=== PATIENT | female | born 1970 | race Caucasian/White ===

== ENCOUNTER → 2016-05-31 | Day surgery (SDC) | payer OTHER ==
[2016-05-30 15:02] VITALS: Ht 157.5 cm; Wt 88.6 kg
[~2016-05-31] VITALS: Ht 157.5 cm; Wt 88.6 kg
[~2016-05-31] MED LIST: ACET-749 PO; ACETAMINOPHEN/CODEINE 300/30MG TAB PO PRN; ATROPINE SULFATE 0.1 MG/ML 5ML SYR IV PRN; ATV/1 PO; BIOF500C2 PO; BUPIVACAINE 0.5 % 5 MG/1 ML MPF 30ML VIAL ONE; BUPR200T2 PO; CEFAZOLIN 1000MG/55 ML D5W IV SCH; CEFAZOLIN SOD 1 GM VIAL ONE; FENTANYL CITRATE INJ 50 MCG/1 ML 2 ML VIAL IV PRN; FENTANYL CITRATE INJ 50 MCG/1 ML 2 ML VIAL ONE; KETOROLAC TROMETHAMINE 30 MG/ML VIAL IV. PRN; LACTATED RINGER'S 1000ML 1,000 ML IV SCH; LIDOCAINE HCL 2% 2 ML VIAL (20MG/ML) ONE; LIDOCAINE HCL 2% LOCAL 20 ML VIAL ONE; MIDAZOLAM HCL 1 MG/ML 2ML VIAL ONE; ONDANSETRON INJ 2 MG/ML 2 ML VIAL IV PRN; PATIENT'S ALLERGY INFO NEEDS ENTERED SCH; PATIENT'S HEIGHT AND/OR WEIGHT NEEDED SCH; PROPOFOL IV EMULSION 10 MG/ML 20 ML VIAL IV ONE; SODIUM CHLORIDE 0.9% 1000ML 1,000 ML IV SCH
--- NOTE | 2016-05-31 10:18 | History & Physical Bridge - [place] ---
H&P Re-Evaluation Bridge Note: I have examined the patient, reviewed the History & Physical and in the interval since the performance of the History & Physical I have noted the following changes of clinical significance: No changes noted
--- NOTE | 2016-05-31 11:03 | [facility] Post Operative Brief Note ---
Immediate Operative Summary Operative Date May 31, 2016. Pre-Operative Diagnosis Right Carpal Tunnel Syndrome, Right Ring Finger Trigger Finger Post-Operative Diagnosis Same Procedure(s) Performed Right Carpal Tunnel Release; Right Ring Trigger Finger Release Surgeon Dr. Valdez Energy Efficient Site Manager Surgeon(s) Kishor Westbrook PA-C Estimated Blood Loss Minimal Findings Right Ring Trigger FInger + Right Carpal Tunnel Syndrome Specimens None Anesthesia Local with IV Sedation Complication(s) None Disposition Recovery Room / PACU
[2016-05-31 11:05] VITALS: TEMP 36.4
--- NOTE | 2016-05-31 11:05 | Discharge Instructions-SurgCtr ---
Discharge Instructions Visit Reason for Visit: Right Carpal Tunnel Syndrome, Right Ring Trigger F Discharge Discharge Diagnosis / Problem: right carpal tunnel syndrome, ring trigger finger Discharge Goals Goal(s): Decrease discomfort, Therapeutic intervention Activity Recommendations Activity Limitations: per Instructions/Follow-up section Anesthesia . Post Anesthesia Instructions: If you have had General Anesthesia or IV Sedation: * Do not drive today. * Resume driving when surgeon permits. * Do not make important decisions or sign legal documents today. * Call surgeon for: 1. Temperature elevations greater than 101 degrees F. 2. Uncontrollable pain. 3. Excessive bleeding. 4. Persistent nausea and vomiting. 5. Medication intolerance (nausea, vomiting or rash). * For nausea and vomiting use only clear liquids such as: tea, soda, bouillon until nausea subsides, then gradually increase diet as tolerated. * If you have any concerns or questions, call your surgeon's office. If physician is unavailable and it is an emergency, call 911 or go to the nearest emergency room. . Instructions / Follow-Up Instructions / Follow-Up MEDICATIONS: * Resume previous medications unless instructed otherwise by your surgeon. * Always take pain medication on a full stomach or with food to avoid upset stomach. * Do not drink alcohol or drive while taking narcotics. * Ibuprofen or Tylenol may be taken if narcotic not needed. SPECIAL CARE INSTRUCTIONS: __ None __ Keep extremity elevated and iced x 48 hours; apply ice 20-30 minutes 8-10 times/day. May remove at night. __ Sling __24 hrs/day __ Remove at night __ Shoulder Immobilizer __ 24 hrs/day __ Remove at night _x_ Dressing _x_ Maintain until seen in office, may shower with plastic over site __ Remove dressings in 24-48 hours and then may shower __ Cover incisions with band-aids after showering __ Do not remove steri-strips Call physician if chills or temperature rises above 102 degrees or pain unrelieved by prescribed pain medications at . follow up in 2 weeks . Diet Recommendations Home Diet: resume previous diet Procedures Procedures Performed: Right Carpal Tunnel Release; Right Ring Trigger Finger Release Pending Studies Studies pending at discharge: no Medical Emergencies . Who to Call and When: Medical Emergencies: If at any time you feel your situation is an emergency, please call 911 immediately. . Non-Emergent Contact Non-Emergency issues call your: Primary Care Provider, Surgeon . . "Provider Documentation" section prepared by Kyler Westbrook.
[2016-05-31 11:31] VITALS: BP 109/73; PULSE 74; O2SAT 97
--- NOTE | 2016-05-31 11:35 | Anesthesia Progress Nt - [facility] ---
Anesthesia Post Op Note Date & Time May 31, 2016 at 11:35 Vital Signs Pain Intensity: 0 Vital Signs Past 12 Hours Date Time Temp Pulse Resp B/P Pulse Ox O2 Delivery O2 Flow Rate FiO2 05/31/16 11:31 74 16 109/73 97 Room Air 05/31/16 11:05 36.4 84 16 111/71 96 Room Air 05/31/16 09:12 36.5 79 16 119/80 95 Room Air Notes Mental Status: alert / awake / arousable, participated in evaluation Pt Amnestic to Procedure: Yes Nausea / Vomiting: adequately controlled Pain: adequately controlled Airway Patency, RR, SpO2: stable & adequate BP & HR: stable & adequate Hydration State: stable & adequate Anesthetic Complications: no major complications apparent
--- NOTE | 2016-05-31 12:40 | OPERATIVE REPORT ---
DATE OF OPERATION: 05/31/2016 SURGEON: Dr. Salvador Valdez. SALES ASSISTANT DISPLAYS: WINDY Herbert. PREOPERATIVE DIAGNOSES: 1. Right carpal tunnel syndrome. 2. Right ring trigger finger. POSTOPERATIVE DIAGNOSIS: Same. PROCEDURE PERFORMED: 1. Right carpal tunnel release. 2. Right ring trigger finger release. COMPLICATIONS: None. ESTIMATED BLOOD LOSS: Minimal. TOURNIQUET TIME: 9 minutes at 250 mmHg. OPERATIVE INDICATIONS: The patient is a 45-year-old female who has had a fairly long history of right hand pain and discomfort, triggering of her finger and numbness. She was treated with an injection, which gave her some temporary relief to the trigger finger. Her symptoms recurred. She elected to proceed with trigger finger release, as well as carpal tunnel release. OPERATIVE PROCEDURE: The patient was taken to the operating room and identified and placed on the operating table in a supine position. All contact areas were appropriately padded. IV antibiotics were provided by the anesthesia team. A right forearm tourniquet was placed. Some IV sedation was provided. 12 mL of a 50:50 combination of 0.5% Marcaine and 2% lidocaine were then injected in and around the proposed incision site of the right palm, as well as the right the ring finger. The right arm and hand was then prepped and draped in the usual sterile fashion. The right arm was elevated and exsanguinated with Esmarch and tourniquet was placed at 250 mmHg. Attention was first drawn to the ring finger. A transverse incision was made at the base of the ring finger just distal to the distal palmar crease. Blunt dissection was carried out through the subcutaneous tissue directly down to the flexor tendon sheath. The flexure tendon sheath was identified. The A1 tim was identified and transected with the use of scissors. The finger was taken through an active and active assisted range of motion and there was no further catching or locking. Attention was then drawn to the carpal tunnel release. A 2.5 to 3 cm incision was made in the palm just ulnar to the palmaris longus tendon. Blunt dissection was carried out through the subcutaneous tissue down to the level of the palmar fascia. The palmar fascia was incised longitudinally in line with skin incision. The underlying transverse carpal ligament was identified and cleaned of all soft tissues. It was transected distally with use of a [place] blade knife and then bluntly spread. Attention was then drawn proximally. Blunt dissection was carried out above and below the ligament proximally. The ligament was then transected for a minimum distance of 3 cm proximal to the wrist flexion crease. The ligament was bluntly spread and found to be completely released. The wound was irrigated with copious amounts of normal saline. The tourniquet was let down for a tourniquet time of 9 minutes. Hemostasis was assured with use of electrocautery. Both wounds were then irrigated again and then closed with 5-0 nylon suture in a horizontal mattress fashion. The hand was then cleaned and dried and a sterile dressing composed of Xeroform, 4 x 4, sterile cast padding and [place] bandage were applied. The patient then transferred to the recovery room in stable condition. The patient tolerated the procedure well with no complications. All needle and sponge counts were correct at the end of the operation. I attest to the content of the Intraoperative Record and any orders documented therein. Any exceptio ns are noted below.
== END | disposition home or self-care (01) ==
LOC: X.SURG 09:03
PROVIDERS: ATTEND Orthopaedic Surgery Sports Medicine
DX: G56.01 Carpal tunnel syndrome, right upper limb (principal); M65.311 Trigger thumb, right thumb